=== PATIENT | male | born 1950 ===

== ENCOUNTER 2017-12-02 02:53 | Outpatient (CLI) | payer MEDICARE, OTHER | END 2017-12-02 23:59 | disposition home or self-care (01) | LOC: DIABETIC 02:53 | PROVIDERS: ATTEND Specialist | DX: E11.65 Type 2 diabetes mellitus with hyperglycemia (principal) | CPT/HCPCS: G0108 ==

== ENCOUNTER 2018-03-03 04:19 | Outpatient (CLI) | payer MEDICARE, OTHER | END 2018-03-03 23:59 | disposition home or self-care (01) | LOC: DIABETIC 04:19 | PROVIDERS: ATTEND Specialist | DX: E11.65 Type 2 diabetes mellitus with hyperglycemia (principal) | CPT/HCPCS: G0108 ==

== ENCOUNTER 2018-06-03 01:51 | Outpatient (CLI) | payer MEDICARE, OTHER | END 2018-06-03 23:59 | disposition home or self-care (01) | LOC: DIABETIC 01:51 | PROVIDERS: ATTEND Specialist | DX: E11.65 Type 2 diabetes mellitus with hyperglycemia (principal) | CPT/HCPCS: G0108 ==

== ENCOUNTER 2018-09-03 01:56 | Outpatient (CLI) | payer MEDICARE, OTHER | END 2018-09-03 23:59 | disposition home or self-care (01) | LOC: DIABETIC 01:56 | PROVIDERS: ATTEND Specialist | DX: E11.65 Type 2 diabetes mellitus with hyperglycemia (principal) | CPT/HCPCS: G0108 ==

== ENCOUNTER 2018-12-03 00:49 | Outpatient (CLI) | payer MEDICARE, OTHER | END 2018-12-03 23:59 | disposition home or self-care (01) | LOC: DIABETIC 00:49 | PROVIDERS: ATTEND Specialist | DX: E11.65 Type 2 diabetes mellitus with hyperglycemia (principal); Z79.84 Long term (current) use of oral hypoglycemic drugs | CPT/HCPCS: G0108 ==

== ENCOUNTER 2019-03-16 00:31 | Outpatient (CLI) | payer MEDICARE, OTHER | END 2019-03-16 23:59 | disposition home or self-care (01) | LOC: DIABETIC 00:31 | PROVIDERS: ATTEND Specialist | DX: E11.65 Type 2 diabetes mellitus with hyperglycemia (principal); Z79.84 Long term (current) use of oral hypoglycemic drugs; Z79.899 Other long term (current) drug therapy | CPT/HCPCS: G0108 ==

== ENCOUNTER 2019-06-15 02:40 | Outpatient (CLI) | payer MEDICARE, OTHER | END 2019-06-15 23:59 | disposition home or self-care (01) | LOC: DIABETIC 02:40 | PROVIDERS: ATTEND Specialist | DX: E11.9 Type 2 diabetes mellitus without complications (principal); Z79.84 Long term (current) use of oral hypoglycemic drugs | CPT/HCPCS: G0108 ==

== ENCOUNTER 2019-11-02 02:25 | Outpatient (CLI) | payer MEDICARE, OTHER | END 2019-11-02 23:59 | disposition home or self-care (01) | LOC: DIABETIC 02:25 | PROVIDERS: ATTEND Specialist | DX: E11.9 Type 2 diabetes mellitus without complications (principal) | CPT/HCPCS: G0108 ==